=== PATIENT | female | born 1965 | race Caucasian/White ===

== ENCOUNTER 2019-04-28 05:27 | Day surgery (SDC) | payer BC, OTHER ==
[~2019-04-28] VITALS: Ht 170.2 cm; Wt 74.8 kg
[~2019-04-28 05:27] MED LIST: ALBUTEROL2.5 MG/31 INH; AMPHETAMINE SAL30 MG PO; CLARITIN10 MG PO; CLONAZEPAM 0.50.5 M1 PO; DIOVAN160 MG PO; MUCINEX600 MG PO; PERCOCET 7.5-31 EACH PO; PROBIOTIC1 EAC1 PO; PROTONIX40 M1 PO; VENTOLIN HFA 1818 GM INH
[2019-04-28 14:25] VITALS: BP 121/96
[2019-04-28] MEDS ORDERED: ASA5UEC PO (15:44)
[2019-04-28] MEDS ORDERED: PERCOCET 7.5-31 EACH PO (15:44)
[2019-04-28 17:19] VITALS: BP 121/96
--- NOTE | 2019-04-28 23:33 | EKG ---
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 : 1965 Requested By: Edson Rice Order Number: [id number] MD: Max Goins Measurements Intervals [place] Rate: 72 P: 34 NM: 148 QRS: -59 QRSD: 96 T: -89 QT: 412 QTc: 451 Interpretive Statements Sinus rhythm Left anterior fascicular block Anteroseptal infarct, old Abnrm T, consider ischemia, anterolateral lds Baseline wander in lead(s) V3 No previous ECG available for comparison Electronically Signed On 04-28-2019 23:33:13 CDT by Max Goins [email or web address] <ELECTRONICALLY SIGNED> By: Max Goins MD 04/28/19 2333 [id number] Max Goins MD /EPI
--- NOTE | 2019-05-10 14:35 | O ---
[facility] [place] [address] OPERATIVE REPORT Name: RYAN HILL Room #: DEP [facility]..#: [id number] Admission: 04/28/19 Attend Phys: Sudheer Luna MD Discharge: 04/28/19 Date of : 61 Report #: [id number] THIS REPORT FOR: //name// CC: Derrick Luna DATE OF SERVICE: 04/28/2019 PREOPERATIVE DIAGNOSIS: Right foot second, third and fourth metatarsal neck fractures, displaced. POSTOPERATIVE DIAGNOSIS: Right foot second, third and fourth metatarsal neck fractures, displaced. PROCEDURE: Open reduction and internal fixation, right foot second, third and fourth metatarsal neck fractures. SURGEON: Sudheer Luna M.D. ANESTHESIA: General. ESTIMATED BLOOD LOSS: Minimal. DRAINS: None. TOURNIQUET TIME: 40 minutes. DESCRIPTION OF PROCEDURE: The patient was brought to the operating room where she was placed under general anesthesia. Once under adequate general anesthesia, her right lower extremity was prepped and draped in a sterile manner. The extremity was elevated, exsanguinated, tourniquet placed to 300 mmHg. A dorsal incision over the second and third interspace was then made. This was dissected down through soft tissue to the metatarsal fractures. Utilizing a Floydada elevator as well as a bone reduction tenaculum, reduction of the third metatarsal fracture, which was the most displaced was then achieved and a 0.062 K-wire was placed from distal to proximal through the toe and into the metatarsal. Similarly, the second and fourth metatarsals were reduced in a similar fashion and subsequently fixed into place with 0.062 K-wires. These were then cut short and pin balls were placed. Satisfactory alignment was achieved as verified under fluoroscopy. The wound was irrigated copiously and closed with 3-0 Vicryl in subcutaneous tissues and 3-0 nylon for the skin. The wound was dressed with Xeroform, 4 x 4s, and a sterile soft compressive dressing was placed. Tourniquet was let down at approximately 40 minutes. Toes were pink and warm with good capillary refill. There were no complications from the [facility] [address] [place] [address] OPERATIVE REPORT Name: LIZRYANERNESTINE TILLEY Room #: DEP [facility].#: [id number] Admission: 04/28/19 Attend Phys: Sudheer Luna MD Discharge: 04/28/19 Date of : 61 Report #: [id number] procedure. The patient tolerated the procedure well and went to the recovery room without incident. <ELECTRONICALLY SIGNED> By: Sudheer Luna MD 05/10/19 1435 [id number] Sudheer Luna MD /nt
== END 2019-04-28 18:03 | disposition home or self-care (01) ==
LOC: OR 05:27 → TBA 05:27 → OR 12:21
DX: S92.321A Displaced fracture of second metatarsal bone, right foot, initial encounter for closed fracture (principal); S92.331A Displaced fracture of third metatarsal bone, right foot, initial encounter for closed fracture; S92.341A Displaced fracture of fourth metatarsal bone, right foot, initial encounter for closed fracture; J45.909 Unspecified asthma, uncomplicated; Z88.0 Allergy status to penicillin; Z88.8 Allergy status to other drugs, medicaments and biological substances; Z79.899 Other long term (current) drug therapy; Z87.891 Personal history of nicotine dependence; X58.XXXA Exposure to other specified factors, initial encounter; Y93.89 Activity, other specified; Y92.89 Other specified places as the place of occurrence of the external cause; Y99.8 Other external cause status
CPT/HCPCS: 50010; 50101; 50386; 51275; 56524; 56525; 56527; 57091; 57180; 62110; 62900; 64039; 65060; 70005